=== PATIENT | female | born 1945 | race Caucasian/White ===

== ENCOUNTER 2023-08-16 14:11 | Outpatient (CLI) | payer MEDICARE | END 2023-08-16 14:12 | disposition home or self-care (01) | LOC: BICMAMMO 14:11 | PROVIDERS: ATTEND Internal Medicine | DX: M81.0 Age-related osteoporosis without current pathological fracture (principal); M85.80 Other specified disorders of bone density and structure, unspecified site | CPT/HCPCS: 77080 ==

== ENCOUNTER 2025-08-04 14:20 | Outpatient (CLI) | payer OTHER | END 2025-08-04 14:21 | disposition home or self-care (01) | LOC: DTY/OP 14:20 | PROVIDERS: ATTEND Internal Medicine | DX: E66.09 Other obesity due to excess calories (principal); E78.00 Pure hypercholesterolemia, unspecified; R73.01 Impaired fasting glucose; I12.9 Hypertensive chronic kidney disease with stage 1 through stage 4 chronic kidney disease, or unspecified chronic kidney disease; N18.31 Chronic kidney disease, stage 3a; Z68.28 Body mass index [BMI] 28.0-28.9, adult | CPT/HCPCS: 97802 ==